=== PATIENT | female | born 1970 | race Caucasian/White ===

== ENCOUNTER 2017-11-30 09:35 | Emergency (ER) | payer OTHER, SELFPAY ==
[2017-11-30 09:42] VITALS: BP 131/89; PULSE 77; RESP 19; TEMP 36.7; O2SAT 99
--- NOTE | 2017-11-30 10:18 | ED.GENADUL_ITS ---
Disposition Clinical Impression: Puncture wound, hand, Laceration of hand Disposition: HOME Condition: Stable Instructions: Laceration (ED), Puncture Wound (ED) Additional Instructions: Keep wounds clean and dry and covered. You may wash the wounds with soap and water and cover with antibiotic ointment and Band-Aid in the next 2 days. Follow-up with your primary care doctor within the next week for wound reevaluation. Return to the emergency department with any worsening or new concerning symptoms such as fever, increased pain redness or swelling. Prescriptions: Cephalexin [Keflex] 500 mg PO TID 7 Days capsule Forms: Work Release Medical Decision Making - Medical Decision Making 47-year-old female presents with 3 accidental puncture wounds from scissors to her left hand at work prior to arrival. Bleeding controlled. Puncture wounds are small and there is surrounding edema but no obvious cellulitis or fluctuance. Patient concerned about infection. I discussed with patient that if patient not immunocompromised, on steroids or history of diabetes, makes infection less likely but she would like a prescription for oral antibiotics and a dose here. As this is a puncture wound and edges are closely approximated , will not close with sutures and will irrigate well, cover with bacitracin, Steri-Strips and dressing. As patient sustained a superficial puncture wound and laceration due to tip of scissors, bony injury and foreign body seems unlikely. She denies any foreign body and states tips of scissors were still intact after injury. She is declining hand x-ray and this seems reasonable as there is no bony deformity or likelihood of foreign body. Tetanus and dose of Keflex given here. Prescription for Keflex given for home. Patient was instructed on the importance of keeping hand clean dry and covered , taking Motrin or Tylenol for pain and applying ice and keeping them elevated. Instructed to follow-up with primary care doctor for reevaluation for wound check in 1 week and to return to the ER with any worsening symptoms or concerns. 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 History of Present Illness - General Chief complaint: Laceration Stated complaint: LEFT PALM PUNTURES Time Seen by Provider: 11/30/17 09:56 Source: patient Mode of arrival: ambulatory Limitations: no limitations - History of Present Illness Initial comments: Patient is a 47-year-old female presents with puncture wounds to left hand while cutting with scissors at work prior to arrival. Patient states she was cutting paper and the scissors puncture hand 3 times. States this is accidental. Tetanus not up-to-date. Denies any bony injury or foreign body. Has not taken anything for pain. Patient is concerned about infection due to this is being dirty. - Related Data CarBAMazepine [Carbatrol] 200 mg PO BID 11/30/17 Cephalexin [Keflex] 500 mg PO TID 7 Days capsule 11/30/17 Divalproex [Depakote] 500 mg PO BID 11/30/17 Allergies Allergy/AdvReac Type Severity Reaction Status Date / Time codeine Allergy Intermediate Hives Unverified 11/30/17 09:45 Sulfa (Sulfonamide AdvReac Unverified 11/30/17 09:45 Antibiotics) Review of Systems Constitutional: denies: chills, fever Eyes: denies: eye pain ENT: denies: ear pain, dental pain Respiratory: denies: cough, shortness of breath Cardiovascular: denies: chest pain, dyspnea on exertion Gastrointestinal: denies: abdominal pain, nausea, vomiting Genitourinary: denies: urgency, dysuria, frequency Musculoskeletal: denies: back pain Skin: denies: rash, lesions Neurological: denies: headache, weakness, numbness Past Medical History - Past Medical History Medical history: seizures Surgical history: no surgical history Psychiatric history: post traumatic stress - Social History Smoking status: never smoker Alcohol use: none Drug use: none General Exam - General Limitations: no limitations General appearance: alert, in no apparent distress - Eye Eye exam: Present: EOMI - Respiratory Respiratory exam: Absent: respiratory distress - Cardiovascular Cardiovascular Exam: Present: regular rate - Extremities Exam Extremities exam: Present: other (3 puncture wounds noted on palm of L hand. One noted to be approximately 4 mm in linear, 1 2 mm, and one a pinpoint puncture wound. No active bleeding. There is mild edema surrounding wounds. There is no ecchymosis, obvious foreign body, crepitus, deformity of fingers or hand or wrist.) - Neurological Exam Neurological exam: Present: alert, oriented X3 - Psychiatric Psychiatric exam: Present: normal affect - Skin Skin exam: Present: warm, dry, intact Course Vital Signs - 24 hr 11/30/17 09:42 Temperature 98.1 F Pulse 77 Respiratory 19 Rate Blood Pressure 131/89 Pulse Oximetry 99
[2017-11-30] MEDS: Ibuprofen 600 MG TAB PO (10:25)
[2017-11-30] MEDS: Cephalexin 500 MG CAP PO (10:26)
== END 2017-11-30 10:46 | disposition home or self-care (01) ==
PROVIDERS: Emergency Provider Physician Assistant; PCP Internal Medicine
DX: S61.432A Puncture wound without foreign body of left hand, initial encounter (principal); S61.412A Laceration without foreign body of left hand, initial encounter; W27.2XXA Contact with scissors, initial encounter; Y99.0 Civilian activity done for income or pay
CPT/HCPCS: 90471; 99283